=== PATIENT | female | born 2005 | race African-American/Black ===

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

== ENCOUNTER 2025-03-05 11:39 | Emergency (ER) | payer OTHER, SELFPAY ==
[2025-03-05 12:03] VITALS: BP 92/61; PULSE 70; RESP 18; TEMP 36.6; O2SAT 100; BMI 35.0
--- NOTE | 2025-03-05 12:18 | ED_ITS ---
HPI - General Adult General Chief complaint: Abdominal Pain Stated complaint: Abd pain Time Seen by Provider: 03/05/25 13:34 Source: patient Mode of arrival: ambulatory Limitations: no limitations History of Present Illness ED Provider: Dori Shipman PA-C HPI narrative: 19-year-old female without significant medical history presents to the ED today due to abdominal cramping that started earlier this morning. Patient states she started her menstrual cycle this morning and it is normal for her to experience cramping during this time. She states that her periods are irregular with her prior menses starting on 12/12. She states she usually has 4 days of bleeding without menorrhagia using approximately 4 pads per day. She reports mild pain with softened bowel movements during her period. She reports that she took ibuprofen today around 10:00 a.m. but is unsure of the dose. She is not currently sexually active, has never had any sexual partners and she is not concerned for STIs at this time. She does not currently have a PCP. Denies chest pain, SOB, urinary symptoms, nausea, vomiting, headache. Related Data Previous Rx's ?Medication ?Instructions ?Recorded ondansetron 4 mg disintegrating 4 mg PO Q8H PRN nausea and 09/24/24 tablet vomiting #7 tabs Allergies Allergy/AdvReac Type Severity Reaction Status Date / Time No Known Allergies Allergy Verified 03/05/25 12:05 Review of Systems Review of Systems: CONST: Negative for fever, body aches and chills. HENT: Negative for neck pain/stiffness, headache, congestion, sore throat, swelling. EYES: Negative for discharge/pain or vision changes. RESP: Negative for cough/hemoptysis and shortness of breath. CV: Negative chest pain, difficulty breathing, palpitations. ABD: Negative, nausea, vomiting. POS lower abd pain : Negative increase frequency, dysuria, blood in urine or stool. MUSC: Negative for muscle aches, edema. SKIN: Negative rash, lesions/sores. NEURO: Negative headache, dizziness, weakness. [facility] Past Medical History Attestation statement: The following information was validated with the patient. Source: old records reviewed Social History Social History Advance Directives: No Advance Directives Information Provided: Yes Physical Exam ED Vital Signs: Vital Signs - 24 hr 03/05/25 12:03 03/05/25 13:36 03/05/25 15:43 Temperature 98 F 98.2 F Pulse Rate 70 75 69 Respiratory Rate 18 14 16 Blood Pressure 92/61 93/53 L 95/51 L Pulse Oximetry 100 100 98 Oxygen Delivery Method Room Air Room Air Room Air BMI result Body Mass Index 35.0 Const General: cooperative, healthy appearing, comfortable and no acute distress Nutritional Appearance: thin Orientation/consciousness: patient oriented x3 Limitations: no limitations Resp Effort & Inspection: normal respiratory effort, able to speak in complete sentences, no audible wheezes, no cough, respiratory effort not decreased, no grunting, not labored, no nasal flaring, no pursed lip breathing, no respiratory distress, no retractions, no tripod positioning and no use of accessory muscles Auscultation: clear to auscultation bilaterally, no crackles, no rales, no rhonchi, no wheezes, breath sounds present and lung sounds not diminished Cardio Jugular venous distension: no JVD Rate: regular rate Rhythm: regular rhythm Heart sounds: S1 normal heart sound present and S2 normal heart sound present GI Inspection: Yes normal to inspection Palpation (GI): Soft to palpation, nontender, no guarding, not rigid, No Rebound tenderness present and No Bladder palpation abnormal Auscultation: normal bowel sounds General: Yes bladder normal to palpation, No Bladder palpation abnormal, No no CVA tenderness and Yes other (no adnexal tenderness/masses felt) Bimanual exam- vagina & uterus: bladder normal to palpation Back/Spine/Pelvis Back: No no CVA tenderness Skin General skin exam: no rashes or lesions noted Neuro General: patient oriented x3 Extrem General: Yes normal to inspection and Yes full ROM Right lower extremity: no edema Left lower extremity: no edema Course Course Course Narrative: RME, this is a rapid medical exam performed by Jesse Cornell please refer to primary provider for complete H&P- 19-year-old female presents for evaluation of lower abdominal cramping that she believes he related to her menstrual cycle that started today. Plan for urinalysis and . She took ibuprofen prior to arrival Medications Administered Discontinued Medications Generic Name Dose Route Start Last Admin Trade Name Freq PRN Reason Stop Dose Admin Acetaminophen 975 mg 03/05/25 13:56 03/05/25 14:10 Acetaminophen 325 Mg Tablet PO 03/05/25 13:57 975 mg ONCE ONE Administration Medical Decision Making Medical Decision Making [facility] Narrative: 19-year-old female without significant medical history presents to the ED today due to abdominal cramping that started earlier this morning. Patient states she started her menstrual cycle this morning and it is normal for her to experience cramping during this time. She states that her periods are irregular with her prior menses starting on 12/12. She states she usually has 4 days of bleeding without menorrhagia using approximately 4 pads per day. She reports mild pain with softened bowel movements during her period. She reports that she took ibuprofen today around 10:00 a.m. but is unsure of the dose. She is not currently sexually active, has never had any sexual partners and she is not concerned for STIs at this time. VSS, in no acute distress, nontoxic appearing, resting comfortably on stretcher. On physical exam patient has mild TTP over suprapubic aspect, which she states this is the area that is usually tender during her menses. Abdomen is soft, nondistended, no peritoneal signs, no guarding, no rebound tenderness, no adnexal tenderness or masses on palpation. No CVA tenderness. Currently awaiting urine , and UA for further evaluation. 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 Course 15:15- UA reveals 1+ urine blood, 6-10 urine RBCs, this is due to patient being on menses during time of collection. Negative for leukocyte esterase, urine nitrites, urine WBCs, urine bacteria. 0-2 squamous epithelial cells indicating that this is a clean-catch urine sample. These results show that there is no current urinary infection. Urine test is negative. Patient was counseled on obtaining a PCP who can help her manage her dysmenorrhea. Patient states her cramps have ceased after Tylenol administration. Differential Diagnosis Differential Diagnoses: The differential diagnosis associated with the presentation includes Dysmenorrhea Endometriosis Ovarian cyst Ectopic Admission/Observation Consideration of admission/observation: Escalation of care including admission/observation considered Lab Data [facility] Lab Attestation statement: I reviewed the patient's lab results. Labs: Lab Results 03/05/25 Range/Units 14:41 Urine Color Yellow Urine Appearance Clear Urine pH 6.5 (5.0-9.0) Ur Specific [place] 1.025 (1.005-1.025) Urine Protein Negative (Neg-Trace) mg/dL Urine Glucose (UA) Negative (Negative) mg/dL Urine Ketones >=160 (Negative) mg/dL Urine Blood Small (1+) H (Negative) Urine Nitrite Negative (Negative) Ur Leukocyte Esterase Negative (Negative) Urine RBC 6-10 H (0-2) /HPF Urine WBC 0-5 (0-5) /HPF Ur Squamous Epith Cells 0-2 (0-2) /HPF Urine Bacteria None Seen (None Seen) Hyaline Casts 0-2 (0-2) /LPF Urine Test NEGATIVE (NEGATIVE) Attestation Attending Attestation: I was personally present and available for consultation in the ED. I have reviewed everything on the chart that is available and agree with the documentation provided by the JESUS including discussion about the assessment, treatment plan and discussion. Based on medical record the care appears appropriate. MD [facility] [place] [facility] Medicine Discharge Plan Discharge Clinical Impression: Dysmenorrhea Patient Disposition: Home, Self-Care Instructions: Dysmenorrhea (ED) Additional Instructions: You were evaluated in the emergency department today due to cramping which started with your menstrual cycle today. Your physical exam was reassuring that there were no acute processes going on in your abdomen. Your test was negative, your urine study did not show any evidence of infection. You were given 975 mg of Tylenol while in the department to easier cramping because you had taken ibuprofen just prior to arrival. You can alternate Tylenol and ibuprofen every 6 hours for pain management. You can use heating pads on your lower abdomen to ease the cramping. You should follow up with a PCP who can help you manage your menstrual pain and irregular periods. If you are having difficulty establishing a PCP, or health insurance you can present to [facility] in the main entrance and their is staff that can help you obtain health insurance. Please return to the emergency department if you experience fevers over 100.4?, worsening abdominal pain, increased vaginal bleeding, nausea, vomiting or any other new, worsening, or concerning symptoms. Prescriptions: No Action ondansetron 4 mg tablet,disintegrating 4 mg PO Q8H PRN (Reason: nausea and vomiting) Qty: 7 0RF Interventions: ED Discharge Assessment Last Done: 03/05/25 15:43 Discharge Date/Time: 03/05/25 15:44 Print Language: Mohawk
[2025-03-05 13:36] VITALS: BP 93/53; PULSE 75; RESP 14; O2SAT 100
[2025-03-05] MEDS: Acetaminophen 325 MG TABLET 975 MG PO (14:10)
[2025-03-05 14:49] LABS: Appearance Urine Clear; Color Urine Yellow; Glucose Urine UA Negative (Negative); Leukocyte Esterase Urine Negative (Negative); Nitrite Urine Negative (Negative); PH 6.5 (5.0-9.0); Specific Gravity - Urine 1.025 (1.005-1.025); UMIC TRIGGER UACC YES; Urine Blood Small (1+) (Negative); Urine Ketones >=160 mg/dL (Negative); Urine Protein Negative (Neg-Trace)
[2025-03-05 14:50] LABS: UPreg QC Valid YES; Urine Pregnancy NEGATIVE (NEGATIVE)
[2025-03-05 14:52] LABS: Bacteria Urine None Seen (None Seen); Hyaline Casts Urine 0-2 /LPF (0-2); Squamous Epithelial Cell Urine 0-2 /HPF (0-2); WBC Urine 0-5 /HPF (0-5)
[2025-03-05 15:43] VITALS: BP 95/51; PULSE 69; RESP 16; TEMP 36.8; O2SAT 98
== END 2025-03-05 15:44 | disposition home or self-care (01) ==
PROVIDERS: Physician Assistant; Emergency Provider Emergency Medicine
DX: N94.4 Primary dysmenorrhea (principal); R10.2 Pelvic and perineal pain
CPT/HCPCS: 81001; 81025; 99283; 99284